=== PATIENT | male | born 2000 | race Two or more races ===

== ENCOUNTER 2022-01-17 10:10 | Emergency (ER) | payer OTHER ==
[~2022-01-17] VITALS: Ht 180.3 cm; Wt 72.6 kg
[2022-01-17] MEDS ORDERED: RISPERDAL0.5 MG PO (10:26)
[2022-01-17] MEDS ORDERED: FOCALIN XR15 MG PO (10:26)
[2022-01-17] MEDS ORDERED: LAMICTAL25 MG PO (10:26)
== END 2022-01-17 14:53 | disposition home or self-care (01) ==
LOC: ER 10:10
DX: R53.1 Weakness (principal); E86.0 Dehydration; R53.81 Other malaise; R11.10 Vomiting, unspecified; Z20.822 Contact with and (suspected) exposure to COVID-19

== ENCOUNTER → 2022-04-12 | Outpatient (CLI) | payer OTHER ==
[~2022-04-12] MED LIST: FOCALIN XR15 MG PO; LAMICTAL25 MG PO; RISPERDAL0.5 MG PO
== END | disposition home or self-care (01) ==
LOC: NUCLEAR 03-15 07:00
PROVIDERS: ATTEND Internal Medicine
DX: R07.1 Chest pain on breathing (principal)

== ENCOUNTER 2022-08-20 08:35 | Outpatient (CLI) | payer OTHER | END 2022-08-20 08:46 | disposition home or self-care (01) | LOC: RX STUDY 08:35 | PROVIDERS: ATTEND Internal Medicine Gastroenterology | DX: K21.9 Gastro-esophageal reflux disease without esophagitis (principal); R10.13 Epigastric pain ==